=== PATIENT | male | born 1975 ===

== ENCOUNTER 2020-12-21 06:05 | Outpatient (REF) | payer BC, SELFPAY ==
[2020-12-21 11:33] LABS: Hematocrit 48.3 % (42-52); Hemoglobin 15.2 g/dl (14.0-18.0); Mean Corpuscular HGB Conc 31.5 g/dl (31.0-36.0); Mean Corpuscular Hemoglobin 26.9 pg (27.0-33.0); Mean Corpuscular Volume 85.3 fL (80-98); Platelet Count 357 X10*3/uL (160-400); Red Blood Count 5.66 X10*6/uL (4.60-5.80); Red Cell Distribution Width 14.1 % (11.0-16.0)
[2020-12-21 11:35] LABS: Appearance Urine CLEAR; Color Urine YELLOW; Glucose Urine UA NEG (NEG); Leukocyte Esterase Urine NEG (NEG); Nitrite Urine NEG (NEG); Urine Blood TRACE (NEG); Urine Ketones NEG (NEG); Urine Protein NEG (NEG-TRACE)
[2020-12-21 12:05] LABS: Alanine Aminotransferase 40 U/L (0-40); Albumin Level 4.4 g/dL (3.5-5.0); Alkaline Phosphatase 63 U/L (39-117); Anion Gap 11 (12-20); Aspartate Amino Transferase 28 U/L (5-37); Bilirubin Total 0.8 mg/dL (0.0-1.0); Blood Urea Nitrogen 17 mg/dL (9-16); Calcium 9.5 mg/dL (8.4-10.2); Carbon Dioxide 28 mmol/L (22-29); Chloride 103 mmol/L (96-108); Cholesterol 181 mg/dL; Estimated Glomerular Filt Rate > 60; Glucose Fasting 98 mg/dL (60-99); HDL Cholesterol 31 mg/dL; LDL Cholesterol Calculated 123 mg/dl; Potassium 4.3 mmol/L (3.3-5.1); Sodium 138 mmol/L (135-145); Total Protein 7.5 g/dL (6.5-8.0); Triglycerides 138 mg/dL
[2020-12-21 12:44] LABS: RBC Urine 0-2 /HPF (0); WBC Urine 0-2 /HPF (0-4)
== END 2020-12-21 06:06 | disposition home or self-care (01) ==
LOC: HO.HMGCLDS 06:05
PROVIDERS: PCP Internal Medicine; Visit Provider Internal Medicine
DX: Z00.00 Encounter for general adult medical examination without abnormal findings (principal); E78.5 Hyperlipidemia, unspecified; R74.8 Abnormal levels of other serum enzymes
CPT/HCPCS: 36415; 80053; 80061; 81001; 82550; 85027

== ENCOUNTER 2021-12-13 06:06 | Outpatient (REF) | payer BC, SELFPAY ==
[2021-12-13 11:15] LABS: MANUAL DIFF FLAG NO
[2021-12-13 11:35] LABS: Basophils Percent Auto 0.4 % (0-2); Eosinophils Absolute Auto 0.3 X10*3/uL (0.0-0.4); Eosinophils Percent Auto 2.7 % (0-4); Hematocrit 48.6 % (42.0-52.0); Hemoglobin 15.3 g/dl (14.0-18.0); Imm Gran Abs Auto 0.03 X10*3/uL (0.00-0.03); Imm Gran Pct Auto 0.3 % (0.0-0.4); Lymphocytes Absolute Auto 2.5 X10*3/uL (1.2-4.9); Lymphocytes Percent Auto 26.9 % (20-40); Mean Corpuscular HGB Conc 31.5 g/dl (31.0-36.0); Mean Corpuscular Hemoglobin 27.1 pg (27.0-33.0); Mean Platelet Volume 10.7 fL (9.4-12.4); Monocytes Absolute Auto 0.8 X10*3/uL (0.1-1.2); Monocytes Percent Auto 9.1 % (2-11); Neutrophils Absolute Auto 5.6 x10*3/uL (2.0-8.3); Neutrophils Percent Auto 60.6 % (45-73); Platelet Count 350 X10*3/uL (160-400); Red Blood Count 5.65 X10*6/uL (4.60-5.80); Red Cell Distribution Width 14.6 % (11.0-16.0); White Blood Count 9.3 X10*3/uL (4.8-10.8)
[2021-12-13 11:41] LABS: Alanine Aminotransferase 46 U/L (0-40); Albumin Level 4.5 g/dL (3.5-5.0); Alkaline Phosphatase 62 U/L (39-117); Anion Gap 12 (12-20); Aspartate Amino Transferase 35 U/L (5-37); Bilirubin Total 0.7 mg/dL (0.0-1.0); Blood Urea Nitrogen 20 mg/dL (9-16); Calcium 9.2 mg/dL (8.4-10.2); Carbon Dioxide 29 mmol/L (22-29); Chloride 103 mmol/L (96-108); Cholesterol 213 mg/dL; Estimated Glomerular Filt Rate > 60; Glucose Fasting 93 mg/dL (60-99); HDL Cholesterol 30 mg/dL; LDL Cholesterol Calculated 147 mg/dl; Potassium 4.3 mmol/L (3.3-5.1); Sodium 140 mmol/L (135-145); Total Protein 7.6 g/dL (6.5-8.0); Triglycerides 183 mg/dL
[2021-12-19 05:01] LABS: Lipoprotein A 75 nmol/L (<75)
== END 2021-12-13 06:07 | disposition home or self-care (01) ==
LOC: HO.HMGCLDS 06:06
PROVIDERS: PCP Internal Medicine; Visit Provider Internal Medicine
DX: Z00.00 Encounter for general adult medical examination without abnormal findings (principal); E78.5 Hyperlipidemia, unspecified
CPT/HCPCS: 36415; 80053; 80061; 83695; 85025

== ENCOUNTER 2022-05-02 06:17 | Outpatient (REF) | payer BC, SELFPAY ==
[2022-05-02 12:00] LABS: Alanine Aminotransferase 74 U/L (0-40); Albumin Level 4.2 g/dL (3.5-5.0); Alkaline Phosphatase 64 U/L (39-117); Anion Gap 12 (12-20); Aspartate Amino Transferase 46 U/L (5-37); Bilirubin Total 0.4 mg/dL (0.0-1.0); Blood Urea Nitrogen 25 mg/dL (9-16); Calcium 9.4 mg/dL (8.4-10.2); Carbon Dioxide 27 mmol/L (22-29); Chloride 104 mmol/L (96-108); Cholesterol 260 mg/dL; Estimated Glomerular Filt Rate > 60; Glucose Fasting 102 mg/dL (60-99); HDL Cholesterol 30 mg/dL; Potassium 4.2 mmol/L (3.3-5.1); Sodium 139 mmol/L (135-145); Total Protein 7.3 g/dL (6.5-8.0); Triglycerides 452 mg/dL
== END 2022-05-02 06:18 | disposition home or self-care (01) ==
LOC: HO.HMGCLDS 06:17
PROVIDERS: PCP Internal Medicine; Visit Provider Internal Medicine
DX: E78.5 Hyperlipidemia, unspecified (principal)
CPT/HCPCS: 36415; 80053; 80061

== ENCOUNTER 2022-08-06 06:04 | Outpatient (REF) | payer BC, SELFPAY ==
[2022-08-06 11:50] LABS: Alanine Aminotransferase 27 U/L (0-40); Albumin Level 4.2 g/dL (3.5-5.0); Alkaline Phosphatase 63 U/L (39-117); Anion Gap 11 (12-20); Aspartate Amino Transferase 21 U/L (5-37); Bilirubin Total 1.1 mg/dL (0.0-1.0); Blood Urea Nitrogen 17 mg/dL (9-16); Calcium 9.6 mg/dL (8.4-10.2); Carbon Dioxide 30 mmol/L (22-29); Chloride 105 mmol/L (96-108); Cholesterol 199 mg/dL; Estimated Glomerular Filt Rate > 60; Glucose Fasting 99 mg/dL (60-99); HDL Cholesterol 34 mg/dL; LDL Cholesterol Calculated 132 mg/dl; Sodium 142 mmol/L (135-145); Total Protein 7.2 g/dL (6.5-8.0); Triglycerides 168 mg/dL
== END 2022-08-06 06:05 | disposition home or self-care (01) ==
LOC: HO.HMGCLDS 06:04
PROVIDERS: PCP Internal Medicine; Visit Provider Internal Medicine
DX: E78.5 Hyperlipidemia, unspecified (principal)
CPT/HCPCS: 36415; 80053; 80061

== ENCOUNTER 2022-11-28 06:05 | Outpatient (REF) | payer BC, SELFPAY ==
[2022-11-28 11:21] LABS: MANUAL DIFF FLAG NO
[2022-11-28 11:29] LABS: Appearance Urine Clear; Color Urine Yellow; Glucose Urine UA Negative (Negative); Leukocyte Esterase Urine Negative (Negative); Nitrite Urine Negative (Negative); Urine Blood Negative (Negative); Urine Ketones Negative (Negative); Urine Protein Negative (Neg-Trace)
[2022-11-28 11:33] LABS: Bacteria Urine None Seen (None Seen); Hyaline Casts Urine 0-2 /LPF (0-2); RBC Urine 0-2 /HPF (0-2); Squamous Epithelial Cell Urine 0-2 /HPF (0-2); WBC Urine 0-5 /HPF (0-5)
[2022-11-28 11:34] LABS: Basophils Absolute Auto 0.1 X10*3/uL (0.0-0.2); Basophils Percent Auto 0.6 % (0-2); Eosinophils Absolute Auto 0.3 X10*3/uL (0.0-0.4); Eosinophils Percent Auto 3.4 % (0-4); Hematocrit 48.4 % (42.0-52.0); Hemoglobin 15.5 g/dl (14.0-18.0); Imm Gran Abs Auto 0.04 X10*3/uL (0.00-0.03); Imm Gran Pct Auto 0.5 % (0.0-0.4); Lymphocytes Absolute Auto 2.5 X10*3/uL (1.2-4.9); Lymphocytes Percent Auto 29.4 % (20-40); Mean Corpuscular Hemoglobin 27.8 pg (27.0-33.0); Mean Corpuscular Volume 86.7 fL (80.0-98.0); Mean Platelet Volume 11.3 fL (9.4-12.4); Monocytes Absolute Auto 0.7 X10*3/uL (0.1-1.2); Monocytes Percent Auto 8.4 % (2-11); Neutrophils Absolute Auto 4.9 x10*3/uL (2.0-8.3); Neutrophils Percent Auto 57.7 % (45-73); Platelet Count 309 X10*3/uL (160-400); Red Blood Count 5.58 X10*6/uL (4.60-5.80); Red Cell Distribution Width 14.6 % (11.0-16.0); White Blood Count 8.5 X10*3/uL (4.8-10.8)
[2022-11-28 12:46] LABS: Alanine Aminotransferase 28 U/L (0-40); Albumin Level 4.3 g/dL (3.5-5.0); Alkaline Phosphatase 54 U/L (39-117); Anion Gap 12 (12-20); Aspartate Amino Transferase 23 U/L (5-37); Bilirubin Total 1.1 mg/dL (0.0-1.0); Blood Urea Nitrogen 18 mg/dL (9-16); Calcium 9.3 mg/dL (8.4-10.2); Carbon Dioxide 27 mmol/L (22-29); Chloride 105 mmol/L (96-108); Cholesterol 222 mg/dL (<200); Estimated Glomerular Filt Rate > 60; Glucose Fasting 93 mg/dL (60-99); HDL Cholesterol 40 mg/dL (>40); LDL Cholesterol Calculated 154 mg/dL (<100); Potassium 3.8 mmol/L (3.3-5.1); Sodium 140 mmol/L (135-145); Total Protein 7.6 g/dL (6.5-8.0); Triglycerides 144 mg/dL (<150)
== END 2022-11-28 06:06 | disposition home or self-care (01) ==
LOC: HO.HMGCLDS 06:05
PROVIDERS: PCP Internal Medicine; Visit Provider Internal Medicine
DX: Z00.00 Encounter for general adult medical examination without abnormal findings (principal); E78.5 Hyperlipidemia, unspecified
CPT/HCPCS: 36415; 80053; 80061; 81001; 85025

== ENCOUNTER 2022-12-03 12:46 | Outpatient (AMB) | payer BC, SELFPAY ==
[2022-12-03 12:56] VITALS: BP 94/60; PULSE 67; O2SAT 99; BMI 29.4
--- NOTE | 2022-12-03 12:56 | MHC.PC.OV ---
Vital Signs 12/03/22 12:56 Height 5 ft 11 in Weight 211 lb BMI 29.4 BP 94/60 Blood Pressure Location Lt brachial Position Sitting Pulse 67 Pulse Source Pulse Oximeter Pulse Oximetry (%) 99 Oxygen Delivery Method Room Air Intake Visit Reasons: annual PE Intake Note: Pt is here today for PE. Allergies pregabalin Allergy (Unknown, Verified 12/03/22 13:28) off balance, anxious seasonal Allergy (Unknown, Uncoded 12/03/22 13:28) unknown Medication List - Last Reconciled 12/03/22 by Virginia Gr MD gabapentin 300 mg PO TID PRN Tobacco use date assessed: 12/03/22 Dental Screening Dental Screen Date: 12/03/22 Did you have a dental visit in the last 12 months?: Yes Did you have a dental problem in the last 6 months where you did not have access to dental care?: No Was dental information given to patient?: Patient has dentist HPI annual PE HPI Details Pt presents for PE. PFSH Medical History Hyperlipemia Annual physical exam Lower back pain Sciatica Elevated CPK Family History Father CAD (coronary artery disease) Hx of CABG Mother Kidney stones Maternal Grandmother Unknown family medical history Maternal Grandfather No problems noted. Paternal Grandmother HTN (hypertension) Paternal Grandfather Myocardial infarction Social History Household Members Other:: physically active at work, , 13,14 children Housing: House Patient Tobacco Use Status: Never used Tobacco e-Cigarette/Vaping Use: Never Used Current occupational status: employed Cognitive needs: No Hearing needs: No Vision needs: No Questionnaire Thrive Questionnaire Date Thrive assessed: 08/08/22 AUDIT C Alcohol Use Questionnaire (AUDIT-C) 1. How often do you have a drink containing alcohol?: Monthly or less 2. How many drinks containing alcohol do you have on a typical day when you are drinking?: 1 or 2 3. How often do you have six or more drinks on one occasion?: Never Total Score: 1 MARCELO-7 AMB Questionnaire MARCELO-7 Date MARCELO - 7 assessed: 08/08/22 Source: Developed by Drs. Canelo Hayes, Rekha Padgett, Carmelo Vidal and colleagues, with an educational precious from [employer]. Review of Systems Const All systems reviewed & are unremarkable except as noted in HPI and below Reports no additional complaints Eyes Reports no additional complaints ENT Reports no additional complaints Card Reports no additional complaints Resp Reports no additional complaints GI Reports no additional complaints Reports no additional complaints Physical exam (Primary Care) Vital Signs: Last Vital Signs Pulse 67 12/03/22 12:56 BP 94/60 12/03/22 12:56 Pulse Ox 99 12/03/22 12:56 Oxygen Delivery Method Room Air 12/03/22 12:56 BMI result Body Mass Index 29.4 Tobacco/Smoking Status: Tobacco use Status Tobacco use date assessed 12/03/22 12/03/22 13:31 Patient Tobacco Use Status Never used Tobacco 12/03/22 13:31 e-Cigarette/Vaping Use Never Used 12/03/22 12:56 Thrive Assessment: Date of Thrive Assessment Date Thrive assessed 08/08/22 12/03/22 12:56 Const General: no acute distress HENMT Head: Yes normal to inspection Ears: hearing grossly normal bilaterally Mouth: Normal oral and palatal mucosa present Throat: Yes posterior oropharynx normal Eyes General: appearance normal, both eyes and all related structures Neck Neck: Yes no lymphadenopathy and Yes supple Resp Effort & Inspection: normal respiratory effort Auscultation: clear to auscultation bilaterally Cardio Rhythm: regular rhythm Heart sounds: S1 normal heart sound present and S2 normal heart sound present GI Inspection: Yes normal to inspection Palpation (GI): Soft to palpation Percussion: Yes normal to percussion Auscultation: normal bowel sounds Assessment and Plan Assessment & Plan (1) Annual physical exam: Code(s): Z00.00 - Encounter for general adult medical examination without abnormal findings Plan: Well-balanced diet regular physical activity weight loss discussed with the patient. (2) Hyperlipemia: Code(s): E78.5 - Hyperlipidemia, unspecified Plan: Continue low-cholesterol diet ,start fish oil supplement and follow-up in 6 months with fasting labs before Orders: Orders Lipid Panel 6 Months E78.5 - Hyperlipidemia, unspecified Coding Level of Care Code Est Pt Prev Care 40-64y(10994) Diagnoses Annual physical exam Z00.00 Hyperlipemia E78.5
== END 2022-12-03 14:30 | disposition home or self-care (01) ==
PROVIDERS: Visit Provider Internal Medicine
DX: Z00.00 Encounter for general adult medical examination without abnormal findings (principal); E78.5 Hyperlipidemia, unspecified
CPT/HCPCS: 99396

== ENCOUNTER 2023-06-03 08:46 | Outpatient (REF) | payer BC, SELFPAY ==
[2023-06-03 10:58] LABS: Cholesterol 201 mg/dL (<200); HDL Cholesterol 38 mg/dL (>40); LDL Cholesterol Calculated 130 mg/dL (<100); Triglycerides 165 mg/dL (<150)
== END 2023-06-03 08:47 | disposition home or self-care (01) ==
LOC: HO.HMGCLDS 08:46
PROVIDERS: PCP Internal Medicine; Visit Provider Internal Medicine
DX: E78.5 Hyperlipidemia, unspecified (principal)
CPT/HCPCS: 36415; 80061

== ENCOUNTER 2023-06-10 14:07 | Outpatient (AMB) | payer BC, SELFPAY ==
--- NOTE | 2023-06-10 14:29 | MHC.PC.OV ---
Vital Signs 06/10/23 14:30 Height 5 ft 11 in Weight 215 lb BMI 30.0 BP 104/64 Blood Pressure Location Lt brachial Position Sitting Pulse 65 Pulse Source Pulse Oximeter Pulse Oximetry (%) 96 Oxygen Delivery Method Room Air Intake Visit Reasons: 6 month follow up Intake Note: Pt is here today for 6 months follow up visit on labs. Allergies pregabalin Allergy (Unknown, Verified 06/10/23 14:32) off balance, anxious seasonal Allergy (Unknown, Uncoded 06/10/23 14:32) unknown Medication List - Last Reconciled 06/10/23 by Virginia Gr MD gabapentin 300 mg PO TID Tobacco use date assessed: 06/10/23 Dental Screening Dental Screen Date: 06/10/23 Did you have a dental visit in the last 12 months?: Yes Did you have a dental problem in the last 6 months where you did not have access to dental care?: No Was dental information given to patient?: Patient has dentist HPI 6 month follow up HPI Details Pt presents for f/u hyperlipid. PFSH Medical History Hyperlipemia Annual physical exam Lower back pain Sciatica Elevated CPK Surgical History No pertinent past surgical history Family History Father CAD (coronary artery disease) Hx of CABG Mother Kidney stones Maternal Grandmother Unknown family medical history Maternal Grandfather No problems noted. Paternal Grandmother HTN (hypertension) Paternal Grandfather Myocardial infarction Social History Household Members Other:: physically active at work, , 13,14 children Housing: House Patient Tobacco Use Status: Never used Tobacco e-Cigarette/Vaping Use: Never Used service: No Current occupational status: employed Cognitive needs: No Hearing needs: No Vision needs: No Questionnaire PHQ-9 Over the last 2 weeks, how often have you been bothered by any of the following problems? 1. Little interest or pleasure in doing things: not at all 2. Feeling down, depressed, or hopeless: not at all 3. Trouble falling or staying asleep, or sleeping too much: not at all 4. Feeling tired or having little energy: not at all 5. Poor appetite or overeating: not at all 6. Feeling bad about yourself - or that you are a failure or have let yourself or your family down: not at all 7. Trouble concentrating on things, such as reading the newspaper or watching television: not at all 8. Moving or speaking so slowly that other people could have noticed. Or the opposite - being so fidgety or restless that you have been moving around a lot more than usual: not at all 9. Thoughts that you would be better off or of hurting yourself in some way: not at all Total score: 0 Depression Screening Interpretation: Negative Depression Screening Done: Yes Source: Developed by Drs. Canelo Hayes, Rekha Padgett, Carmelo Vidal and colleagues, with an educational precious from [employer]. Thrive Questionnaire Date Thrive assessed: 06/10/23 I am a: Patient What is your living situation today?: I have a steady place to live Within the past 12 months, did the food you bought not last and you didn't have the money to get more?: Never true Within the past 12 months, did you worry whether your food would run out before you got money to buy more?: Never true Do you have trouble paying for medicines?: No Do you have trouble getting transportation to medical appointments?: No Do you have trouble paying your heating and electricity bill?: No Do you have trouble taking care of your child, family member or friend?: No Do you have trouble with day-to-day activities such as bathing, preparing meals, shopping, managing finances, etc.?: No Are you currently unemployed and looking for a job?: No Are you interested in more education?: No Please select the resources that you would like help with: None THRIVE Score: 0 MARCELO-7 AMB Questionnaire MARCELO-7 Date MARCELO - 7 assessed: 06/10/23 Feeling nervous, anxious, or on edge: 0 = Not at all Not being able to stop or control worryin = Not at all Worrying too much about different things: 0 = Not at all Trouble relaxin = Not at all Being so restless that it is hard to sit still: 0 = Not at all Becoming easily annoyed or irritable: 0 = Not at all Feeling afraid as if something awful might happen: 0 = Not at all Total MARCELO-7 score (0-4 normal; 5-9 mild; 10-14 moderate; 15-21 severe): 0 Source: Developed by Drs. Canelo Hayes, Rekha Padgett, Carmelo Vidal and colleagues, with an educational precious from [employer]. Review of Systems Const All systems reviewed & are unremarkable except as noted in HPI and below Reports no additional complaints Eyes Reports no additional complaints ENT Reports no additional complaints Card Reports no additional complaints Resp Reports no additional complaints GI Reports no additional complaints Reports no additional complaints Physical exam (Primary Care) Vital Signs: Last Vital Signs Pulse 65 06/10/23 14:30 BP 104/64 06/10/23 14:30 Pulse Ox 96 06/10/23 14:30 Oxygen Delivery Method Room Air 06/10/23 14:30 BMI result Body Mass Index 30.0 Tobacco/Smoking Status: Tobacco use Status Tobacco use date assessed 06/10/23 06/10/23 14:37 Patient Tobacco Use Status Never used Tobacco 06/10/23 14:37 e-Cigarette/Vaping Use Never Used 06/10/23 14:37 PHQ-9: PHQ-9 Score PHQ-9: Total score 0 06/10/23 14:37 Depression Screening Interpretation: Negative Thrive Assessment: Date of Thrive Assessment Date Thrive assessed 06/10/23 06/10/23 14:37 Const General: no acute distress HENMT Head: Yes normal to inspection Ears: hearing grossly normal bilaterally Face and sinus: Yes normal facial exam Neck Neck: Yes supple Resp Effort & Inspection: normal respiratory effort Auscultation: clear to auscultation bilaterally Cardio Rhythm: regular rhythm Heart sounds: S1 normal heart sound present and S2 normal heart sound present Assessment and Plan Assessment & Plan (1) Hyperlipemia: Code(s): E78.5 - Hyperlipidemia, unspecified Plan: CONTINUE LOW-CHOLESTEROL DIET REGULAR EXERCISE AND WEIGHT LOST RETURN IN 6 MONTHS FOR PHYSICAL WITH A FASTING LABS BEFORE (2) Overweight: Code(s): E66.3 - Overweight Orders: Orders Comprehensive [place]. Panel Fast 6 Months E78.5 - Hyperlipidemia, unspecified, Z00.00 - Encounter for general adult medical examination without abnormal findings Lipid Panel 6 Months E78.5 - Hyperlipidemia, unspecified, Z00.00 - Encounter for general adult medical examination without abnormal findings LDL Cholesterol Direct 6 Months E78.5 - Hyperlipidemia, unspecified, Z00.00 - Encounter for general adult medical examination without abnormal findings Complete Blood Count Auto Diff 6 Months E78.5 - Hyperlipidemia, unspecified, Z00.00 - Encounter for general adult medical examination without abnormal findings Medications: Changed From gabapentin 300 mg PO TID PRN To gabapentin 300 mg PO TID 60 caps 0RF Coding Level of Care Code Est Pt Level 3 (30682) Diagnoses Hyperlipemia E78.5 Overweight E66.3
[2023-06-10 14:30] VITALS: BP 104/64; PULSE 65; O2SAT 96
== END 2023-06-10 15:06 | disposition home or self-care (01) ==
PROVIDERS: PCP Internal Medicine; Visit Provider Internal Medicine
DX: E78.5 Hyperlipidemia, unspecified (principal); E66.3 Overweight
CPT/HCPCS: 99213

== ENCOUNTER 2023-12-09 06:02 | Outpatient (REF) | payer BC, SELFPAY ==
[2023-12-09 10:05] LABS: MANUAL DIFF FLAG NO
[2023-12-09 10:11] LABS: Basophils Percent Auto 0.5 % (0-2); Eosinophils Absolute Auto 0.3 X10*3/uL (0.0-0.4); Eosinophils Percent Auto 3.5 % (0-4); Hematocrit 48.4 % (42.0-52.0); Hemoglobin 15.5 g/dl (14.0-18.0); Imm Gran Abs Auto 0.04 X10*3/uL (0.00-0.03); Imm Gran Pct Auto 0.5 % (0.0-0.4); Lymphocytes Absolute Auto 2.4 X10*3/uL (1.2-4.9); Lymphocytes Percent Auto 27.5 % (20-40); Mean Corpuscular Hemoglobin 27.5 pg (27.0-33.0); Mean Platelet Volume 10.6 fL (9.4-12.4); Monocytes Absolute Auto 0.8 X10*3/uL (0.1-1.2); Neutrophils Absolute Auto 5.2 x10*3/uL (2.0-8.3); Platelet Count 317 X10*3/uL (160-400); Red Blood Count 5.63 X10*6/uL (4.60-5.80); Red Cell Distribution Width 14.3 % (11.0-16.0); White Blood Count 8.8 X10*3/uL (4.8-10.8)
[2023-12-09 10:26] LABS: Alanine Aminotransferase 34 U/L (0-40); Albumin Level 4.3 g/dL (3.5-5.0); Alkaline Phosphatase 58 U/L (39-117); Anion Gap 11 (12-20); Aspartate Amino Transferase 26 U/L (5-37); Bilirubin Total 0.8 mg/dL (0.0-1.0); Blood Urea Nitrogen 17 mg/dL (9-16); Calcium 9.3 mg/dL (8.4-10.2); Carbon Dioxide 27 mmol/L (22-29); Chloride 105 mmol/L (96-108); Cholesterol 215 mg/dL (<200); Estimated Glomerular Filt Rate > 60; Glucose Fasting 105 mg/dL (60-99); HDL Cholesterol 37 mg/dL (>40); LDL Cholesterol Calculated 145 mg/dL (<100); Potassium 3.7 mmol/L (3.3-5.1); Sodium 139 mmol/L (135-145); Total Protein 7.7 g/dL (6.5-8.0); Triglycerides 169 mg/dL (<150)
[2023-12-10 19:14] LABS: LDL Cholesterol Direct 146 mg/dL (<100)
== END 2023-12-09 06:03 | disposition home or self-care (01) ==
LOC: HO.HMGCLDS 06:02
PROVIDERS: PCP Internal Medicine; Visit Provider Internal Medicine
DX: Z00.00 Encounter for general adult medical examination without abnormal findings (principal); E78.5 Hyperlipidemia, unspecified
CPT/HCPCS: 36415; 80053; 80061; 83721; 85025

== ENCOUNTER 2023-12-10 12:42 | Outpatient (AMB) | payer BC, SELFPAY ==
[2023-12-10 12:48] VITALS: BP 100/66; PULSE 60; O2SAT 97; BMI 29.8
--- NOTE | 2023-12-10 12:48 | MHC.PC.OV ---
Vital Signs 12/10/23 12:48 Height 5 ft 11 in Weight 214 lb BMI 29.8 BP 100/66 Blood Pressure Location Lt brachial Position Sitting Pulse 60 Pulse Source Pulse Oximeter Pulse Oximetry (%) 97 Oxygen Delivery Method Room Air Intake Visit Reasons: Annual PE Allergies pregabalin Allergy (Unknown, Verified 12/10/23 12:53) off balance, anxious seasonal Allergy (Unknown, Uncoded 12/10/23 12:53) unknown Medication List - Last Reconciled 12/10/23 by Virginia Gr MD gabapentin 300 mg PO DAILY PRN Tobacco use date assessed: 12/10/23 Dental Screening Dental Screen Date: 12/10/23 Did you have a dental visit in the last 12 months?: Yes Did you have a dental problem in the last 6 months where you did not have access to dental care?: No Was dental information given to patient?: Patient has dentist HPI Annual PE HPI Details Pt presents for PE. PFSH Medical History Hyperlipemia Annual physical exam Lower back pain Sciatica Elevated CPK Surgical History No pertinent past surgical history Family History Father CAD (coronary artery disease) Hx of CABG Mother Kidney stones Maternal Grandmother Unknown family medical history Maternal Grandfather No problems noted. Paternal Grandmother HTN (hypertension) Paternal Grandfather Myocardial infarction Social History Household Members Other:: physically active at work, , 13,14 children Housing: House Patient Tobacco Use Status: Never used Tobacco e-Cigarette/Vaping Use: Never Used service: No Current occupational status: employed Cognitive needs: No Hearing needs: No Vision needs: No Questionnaire PHQ-9 Over the last 2 weeks, how often have you been bothered by any of the following problems? 1. Little interest or pleasure in doing things: not at all 2. Feeling down, depressed, or hopeless: not at all 3. Trouble falling or staying asleep, or sleeping too much: not at all 4. Feeling tired or having little energy: not at all 5. Poor appetite or overeating: not at all 6. Feeling bad about yourself - or that you are a failure or have let yourself or your family down: not at all 7. Trouble concentrating on things, such as reading the newspaper or watching television: not at all 8. Moving or speaking so slowly that other people could have noticed. Or the opposite - being so fidgety or restless that you have been moving around a lot more than usual: not at all 9. Thoughts that you would be better off or of hurting yourself in some way: not at all Total score: 0 Depression Screening Interpretation: Negative Depression Screening Done: Yes 42011 - PHQ-9 Billing: Yes Source: Developed by Drs. Canelo Hayes, Rekha Padgett, Carmelo Vidal and colleagues, with an educational precious from [employer]. Thrive Questionnaire Date Thrive assessed: 06/10/23 I am a: Patient What is your living situation today?: I have a steady place to live Within the past 12 months, did the food you bought not last and you didn't have the money to get more?: I choose not to answer this question Within the past 12 months, did you worry whether your food would run out before you got money to buy more?: I choose not to answer this question Do you have trouble paying for medicines?: No Do you have trouble getting transportation to medical appointments?: No Do you have trouble paying your heating and electricity bill?: I choose not to answer this question Do you have trouble taking care of your child, family member or friend?: I choose not to answer this question Do you have trouble with day-to-day activities such as bathing, preparing meals, shopping, managing finances, etc.?: I choose not to answer this question Are you interested in more education?: I choose not to answer this question Please select the resources that you would like help with: None Currently or been in a relationship where the following occur: I choose not to answer THRIVE Score: 0 AUDIT C Alcohol Use Questionnaire (AUDIT-C) 1. How often do you have a drink containing alcohol?: Never 3. How often do you have six or more drinks on one occasion?: Never Total Score: 0 MARCELO-7 AMB Questionnaire MARCELO-7 Date MARCELO - 7 assessed: 06/10/23 Feeling nervous, anxious, or on edge: 0 = Not at all Not being able to stop or control worryin = Not at all Worrying too much about different things: 0 = Not at all Trouble relaxin = Not at all Being so restless that it is hard to sit still: 0 = Not at all Becoming easily annoyed or irritable: 0 = Not at all Feeling afraid as if something awful might happen: 0 = Not at all Total MARCELO-7 score (0-4 normal; 5-9 mild; 10-14 moderate; 15-21 severe): 0 Source: Developed by Drs. Canelo Hayes, Rekha Padgett, Carmelo Vidal and colleagues, with an educational precious from [employer]. Review of Systems Const All systems reviewed & are unremarkable except as noted in HPI and below Reports no additional complaints Eyes Reports no additional complaints ENT Reports no additional complaints Card Reports no additional complaints Resp Reports no additional complaints GI Reports no additional complaints Reports no additional complaints Musc Reports no additional complaints Physical exam (Primary Care) Vital Signs: Last Vital Signs Pulse 60 12/10/23 12:48 BP 100/66 12/10/23 12:48 Pulse Ox 97 12/10/23 12:48 Oxygen Delivery Method Room Air 12/10/23 12:48 BMI result Body Mass Index 29.8 Tobacco/Smoking Status: Tobacco use Status Tobacco use date assessed 12/10/23 12/10/23 12:55 Patient Tobacco Use Status Never used Tobacco 12/10/23 12:50 e-Cigarette/Vaping Use Never Used 12/10/23 12:50 PHQ-9: PHQ-9 Score PHQ-9: Total score 0 12/10/23 12:55 Depression Screening Interpretation: Negative Thrive Assessment: Date of Thrive Assessment Date Thrive assessed 06/10/23 12/10/23 12:50 Currently or been in a relationship where the following occur: I choose not to answer Const General: no acute distress HENMT Head: Yes normal to inspection Ears: hearing grossly normal bilaterally Mouth: Normal oral and palatal mucosa present Throat: Yes posterior oropharynx normal Eyes General: appearance normal, both eyes and all related structures Resp Effort & Inspection: normal respiratory effort Auscultation: clear to auscultation bilaterally Cardio Rate: regular rate Rhythm: regular rhythm and abnormal rhythm GI Inspection: Yes normal to inspection Palpation (GI): Soft to palpation Percussion: Yes normal to percussion Auscultation: normal bowel sounds Coding Level of Care Code Est Pt Prev Care 40-64y(26007) Diagnoses Annual physical exam Z00.00 Hyperlipemia E78.5 Overweight E66.3 Assessment & Plan Assessment & Plan (1) Annual physical exam: Comment: negative Cologuard 02/2023 Code(s): Z00.00 - Encounter for general adult medical examination without abnormal findings Category: Medical Plan: Well-balanced diet regular physical activity discussed with the patient. Patient requested referral to lithographic camera operator for weight loss and low-cholesterol diet (2) Hyperlipemia: Code(s): E78.5 - Hyperlipidemia, unspecified Category: Medical Plan: Low-cholesterol diet discussed with the patient (3) Overweight: Code(s): E66.3 - Overweight Category: Medical Plan: Referred to lithographic camera operator Orders: Orders Complete Blood Count Auto Diff 1 Year E66.3 - Overweight, E78.5 - Hyperlipidemia, unspecified, Z00.00 - Encounter for general adult medical examination without abnormal findings UA w Microscopic 1 Year E66.3 - Overweight, E78.5 - Hyperlipidemia, unspecified, Z00.00 - Encounter for general adult medical examination without abnormal findings Comprehensive [place]. Panel Fast 1 Year E66.3 - Overweight, E78.5 - Hyperlipidemia, unspecified, Z00.00 - Encounter for general adult medical examination without abnormal findings Lipid Panel 1 Year E66.3 - Overweight, E78.5 - Hyperlipidemia, unspecified, Z00.00 - Encounter for general adult medical examination without abnormal findings Referrals Nutrition/Dietitian Referral E66.3 - Overweight, E78.5 - Hyperlipidemia, unspecified Medications: Changed From gabapentin 300 mg PO TID 60 caps 0RF To gabapentin 300 mg PO DAILY PRN
== END 2023-12-10 13:35 | disposition home or self-care (01) ==
PROVIDERS: PCP Internal Medicine; Visit Provider Internal Medicine
DX: Z00.00 Encounter for general adult medical examination without abnormal findings (principal); E78.5 Hyperlipidemia, unspecified; E66.3 Overweight

== ENCOUNTER → 2023-12-10 12:42 | Outpatient (BNVA) | payer BC, SELFPAY | PROVIDERS: PCP Internal Medicine; Visit Provider Internal Medicine ==

== ENCOUNTER 2023-12-31 13:21 | Outpatient (AMB) | payer BC, SELFPAY ==
[2023-12-31 13:31] VITALS: BMI 29.9
--- NOTE | 2023-12-31 13:31 | A.OFFVIS_ITS ---
VS Expanded 12/31/23 13:31 Height 5 ft 11 in Weight 214 lb 8.156 oz BMI 29.9 Intake Visit Reasons: Hyperlipidemia, Overweight/CONFIRMED Allergies pregabalin Allergy (Unknown, Verified 12/10/23 12:53) off balance, anxious seasonal Allergy (Unknown, Uncoded 12/10/23 12:53) unknown Nutrition Presentation Details: Pt presents for MNT for high cholesterol . Pt was referred by PCP, Dr. Gr Pt reports working on following Mediterranean diet, reports confusion with meal options typical meal : B: Life cereals or sugary cereals with oat milk L: salads with chicken or sandwich with whole wheat bread , water , juices green D: pasta with beef cottage cheese , water snacks: fruits, cookies physical activity: active at work etoh/smoking -- food frequency fruits: 0-1/d ve-3 x/wk fish: 0-1/wk starches: 30 /d dairy: 2+/day fried foods: 1x/wk pastries: working on reducing BS Monitoring Most Recent Diabetes Results: Cholesterol 215 mg/dL (<200) H 12/09/23 HDL Cholesterol 37 mg/dL (>40) L 12/09/23 Triglycerides 169 mg/dL (<150) H 12/09/23 Creatinine 1.07 mg/dL (0.5-1.4) 12/09/23 Blood Urea Nitrogen 17 mg/dL (9-16) H 12/09/23 Sodium 139 mmol/L (135-145) 12/09/23 Potassium 3.7 mmol/L (3.3-5.1) 12/09/23 Chloride 105 mmol/L (96-108) 12/09/23 Carbon Dioxide 27 mmol/L (22-29) 12/09/23 Calcium 9.3 mg/dL (8.4-10.2) 12/09/23 AST 26 U/L (5-37) 12/09/23 ALT 34 U/L (0-40) 12/09/23 Total Protein 7.7 g/dL (6.5-8.0) 12/09/23 Albumin 4.3 g/dL (3.5-5.0) 12/09/23 OBH-[id number]-Id.Jeor Equation Height: 5 ft 11 in Weight: 215 lb Resting Metabolic Rate: 1875.13 Calculated Activity Level: Moderate Activity Calories Needed to Maintain Weight: 2906.45 Diagnosis Nutrition problem #1: food nutri know defi As related to (etiology) #1: diagnosis (elevated chol and fasting BG) As evidenced by (sign/symptom) #1: abnormal lab values and knowledge deficit of diet Monitoring/Goals Nutrition problem monitoring: level of knowledge/skill [facility] Medical History Hyperlipemia Annual physical exam Lower back pain Sciatica Elevated CPK Surgical History No pertinent past surgical history Family History Father CAD (coronary artery disease) Hx of CABG Mother Kidney stones Maternal Grandmother Unknown family medical history Maternal Grandfather No problems noted. Paternal Grandmother HTN (hypertension) Paternal Grandfather Myocardial infarction Social History Household Members Other:: physically active at work, , 13,14 children Housing: House Patient Tobacco Use Status: Never used Tobacco e-Cigarette/Vaping Use: Never Used service: No Current occupational status: employed Cognitive needs: No Hearing needs: No Vision needs: No Assessment & Plan Assessment & Plan (1) Hyperlipemia: Code(s): E78.5 - Hyperlipidemia, unspecified Category: Medical Plan: Wt: 98 Kg ( 12/30) Est kcal needs as per MSJ: 2900-500 (40% carb, 30% protein/fat) Est fluid needs as per 25-30 ml/d: 2900 Est prot per day as per 1 g/kg bw: 98 Recommend fiber intake : 8-10 g per day and gradually increase to 25-28 g per day for women and 35-38 g for men or as tolerated Recommend sodium intake per day : less than 1500 mg less than 2000 mg Educated patient on: ( R = reviewed V = verbalizes understanding N/R = needs review N/A = not applicable * Food sources of carbohydrate, adequate serving sizes and its role in various health conditions: R V N/R * Differences between complex carbohydrates a simple carbohydrates, role of fiber in diet: R * Lean protein sources of foods: R * Differences between types of fats and role in diet (mono on saturated fat fatty acids, saturated fatty acids, trans fats): R * Food sources of sodium in salt and healthy modifications for heart health in kidney health: R V R/V * Vitamins and minerals: R V N/R * Healthy plate method concept: R * Physical activity: Benefits a precaution: R V N/R * Hypoglycemia protocol (rule of 15): R V N/R * Dietary prevention of Hyperglycemia: R Patient Instructions: Choose foods low in saturated fats and increase fiber in your diet : Have fish twice a week , snack on nuts vs pastries, -see list of options Choose fruits at least twice a day in place of fruit juices Follow healthy plate method, see list of meal ideas Coding Level of Care Code Nutr Indiv Intake (87298) Diagnoses Hyperlipemia E78.5 Time Spent (min) 30
== END 2023-12-31 14:19 | disposition home or self-care (01) ==
PROVIDERS: PCP Internal Medicine; Visit Provider Dietitian, Registered
DX: E78.5 Hyperlipidemia, unspecified (principal)

== ENCOUNTER → 2023-12-31 13:21 | Outpatient (BNVA) | payer BC, SELFPAY | PROVIDERS: PCP Internal Medicine; Visit Provider Dietitian, Registered | DX: E78.5 Hyperlipidemia, unspecified (principal); Z71.3 Dietary counseling and surveillance | CPT/HCPCS: 97802 ==

== ENCOUNTER 2024-02-11 14:19 | Outpatient (AMB) | payer BC, SELFPAY ==
[2024-02-11 14:33] VITALS: BMI 30.3
--- NOTE | 2024-02-11 14:33 | A.OFFVIS_ITS ---
VS Expanded 02/11/24 14:33 Height 5 ft 11 in Weight 216 lb 14.958 oz BMI 30.3 Intake Visit Reasons: Hyperlipidemia, Overweight Allergies pregabalin Allergy (Unknown, Verified 12/10/23 12:53) off balance, anxious seasonal Allergy (Unknown, Uncoded 12/10/23 12:53) unknown Medication List - Last Reconciled 02/11/[address], LDN gabapentin 300 mg PO DAILY PRN omega 6-iyc-syo-fish oil 1,000 (120-180) mg (Fish Oil) 1 cap PO TID Nutrition Presentation Details: Pt presents for MNT f/u for hyperlipidemia Pt reports taking fish oil 1000 , 2-3 times/day Working on choosing fiber rich foods an dower fat food options BS Monitoring Most Recent Diabetes Results: Cholesterol 215 mg/dL (<200) H 12/09/23 HDL Cholesterol 37 mg/dL (>40) L 12/09/23 Triglycerides 169 mg/dL (<150) H 12/09/23 Creatinine 1.07 mg/dL (0.5-1.4) 12/09/23 Blood Urea Nitrogen 17 mg/dL (9-16) H 12/09/23 Sodium 139 mmol/L (135-145) 12/09/23 Potassium 3.7 mmol/L (3.3-5.1) 12/09/23 Chloride 105 mmol/L (96-108) 12/09/23 Carbon Dioxide 27 mmol/L (22-29) 12/09/23 Calcium 9.3 mg/dL (8.4-10.2) 12/09/23 AST 26 U/L (5-37) 12/09/23 ALT 34 U/L (0-40) 12/09/23 Total Protein 7.7 g/dL (6.5-8.0) 12/09/23 Albumin 4.3 g/dL (3.5-5.0) 12/09/23 [facility] Medical History Hyperlipemia Annual physical exam Lower back pain Sciatica Elevated CPK Surgical History No pertinent past surgical history Family History Father CAD (coronary artery disease) Hx of CABG Mother Kidney stones Maternal Grandmother Unknown family medical history Maternal Grandfather No problems noted. Paternal Grandmother HTN (hypertension) Paternal Grandfather Myocardial infarction Social History Household Members Other:: physically active at work, , 13,14 children Housing: House Patient Tobacco Use Status: Never used Tobacco e-Cigarette/Vaping Use: Never Used service: No Current occupational status: employed Cognitive needs: No Hearing needs: No Vision needs: No Assessment & Plan Assessment & Plan (1) Hyperlipemia: Code(s): E78.5 - Hyperlipidemia, unspecified Category: Medical Plan: Wt: 98 Kg ( 12/30), 03/01 Est kcal needs as per MSJ: 2900-500 (40% carb, 30% protein/fat) Est fluid needs as per 25-30 ml/d: 2900 Est prot per day as per 1 g/kg bw: 98 Recommend fiber intake : 8-10 g per day and gradually increase to 25-28 g per day for women and 35-38 g for men or as tolerated Recommend sodium intake per day : less than 1500 mg less than 2000 mg Educated patient on: ( R = reviewed V = verbalizes understanding N/R = needs review N/A = not applicable * Food sources of carbohydrate, adequate serving sizes and its role in various health conditions: R V N/R * Differences between complex carbohydrates a simple carbohydrates, role of fiber in diet: R * Lean protein sources of foods: R * Differences between types of fats and role in diet (mono on saturated fat fatty acids, saturated fatty acids, trans fats): R * Food sources of sodium in salt and healthy modifications for heart health in kidney health: R V R/V * Vitamins and minerals: R V N/R * Healthy plate method concept: R * Physical activity: Benefits a precaution: R * Dietary prevention of Hyperglycemia: R Patient Instructions: Continue working on reducing saturated fats and cholesterol in your diet by reading foods labels , vary plant and lean protein sources of foods Try meal replacement Choose foods with fiber and be mindful of amount of carbohydrates consumed at meals Coding Level of Care Code Nutr Indiv Subseq (84620) Diagnoses Hyperlipemia E78.5 Time Spent (min) 30
== END 2024-02-11 15:12 | disposition home or self-care (01) ==
PROVIDERS: PCP Internal Medicine; Visit Provider Dietitian, Registered
DX: E78.5 Hyperlipidemia, unspecified (principal)

== ENCOUNTER → 2024-02-11 14:19 | Outpatient (BNVA) | payer BC, SELFPAY | PROVIDERS: PCP Internal Medicine; Visit Provider Dietitian, Registered | DX: E78.5 Hyperlipidemia, unspecified (principal); E66.3 Overweight; Z71.3 Dietary counseling and surveillance; Z68.30 Body mass index [BMI] 30.0-30.9, adult | CPT/HCPCS: 97803 ==

== ENCOUNTER 2024-05-12 14:17 | Outpatient (AMB) | payer BC, SELFPAY ==
--- NOTE | 2024-05-12 14:38 | A.OFFVIS_ITS ---
VS Expanded 05/12/24 14:39 Height 5 ft 11 in Weight 210 lb 15.718 oz BMI 29.4 Intake Visit Reasons: high chol, elevated bg, monitor weight Allergies pregabalin Allergy (Unknown, Verified 12/10/23 12:53) off balance, anxious seasonal Allergy (Unknown, Uncoded 12/10/23 12:53) unknown Nutrition Presentation Details: Pt presents for MNT f/u for hyperlipidemia Pt reports working on including fiber rich foods, working on following Mediterranean diet concepts Reports increasing physical activity, BS Monitoring Most Recent Diabetes Results: Cholesterol 215 mg/dL (<200) H 12/09/23 HDL Cholesterol 37 mg/dL (>40) L 12/09/23 Triglycerides 169 mg/dL (<150) H 12/09/23 Creatinine 1.07 mg/dL (0.5-1.4) 12/09/23 Blood Urea Nitrogen 17 mg/dL (9-16) H 12/09/23 Sodium 139 mmol/L (135-145) 12/09/23 Potassium 3.7 mmol/L (3.3-5.1) 12/09/23 Chloride 105 mmol/L (96-108) 12/09/23 Carbon Dioxide 27 mmol/L (22-29) 12/09/23 Calcium 9.3 mg/dL (8.4-10.2) 12/09/23 AST 26 U/L (5-37) 12/09/23 ALT 34 U/L (0-40) 12/09/23 Total Protein 7.7 g/dL (6.5-8.0) 12/09/23 Albumin 4.3 g/dL (3.5-5.0) 12/09/23 [facility] Medical History Hyperlipemia Annual physical exam Lower back pain Sciatica Elevated CPK Surgical History No pertinent past surgical history Family History Father CAD (coronary artery disease) Hx of CABG Mother Kidney stones Maternal Grandmother Unknown family medical history Maternal Grandfather No problems noted. Paternal Grandmother HTN (hypertension) Paternal Grandfather Myocardial infarction Social History Household Members Other:: physically active at work, , 13,14 children Housing: House Patient Tobacco Use Status: Never used Tobacco e-Cigarette/Vaping Use: Never Used service: No Current occupational status: employed Cognitive needs: No Hearing needs: No Vision needs: No Assessment & Plan Assessment & Plan (1) Hyperlipemia: Code(s): E78.5 - Hyperlipidemia, unspecified Category: Medical Plan: Wt: 98 Kg ( 12/30), 03/01, 96 kg (05/31) Est kcal needs as per MSJ: 2900-500 (40% carb, 30% protein/fat) Est fluid needs as per 25-30 ml/d: 2900 Est prot per day as per 1 g/kg bw: 98 Recommend fiber intake : 8-10 g per day and gradually increase to 25-28 g per day for women and 35-38 g for men or as tolerated Recommend sodium intake per day : less than 1500 mg less than 2000 mg Educated patient on: ( R = reviewed V = verbalizes understanding N/R = needs review N/A = not applicable * Food sources of carbohydrate, adequate serving sizes and its role in various health conditions: R V N/R * Differences between complex carbohydrates a simple carbohydrates, role of fiber in diet: R * Lean protein sources of foods: R * Differences between types of fats and role in diet (mono on saturated fat fatty acids, saturated fatty acids, trans fats): R * Food sources of sodium in salt and healthy modifications for heart health in kidney health: R V R/V * Vitamins and minerals: R V N/R * Healthy plate method concept: R * Physical activity: Benefits a precaution: R * Dietary prevention of Hyperglycemia: R Patient Instructions: Include fiber rich foods/omega 3 fatty acids( seeds, nuts, as example) Continue working on reducing foods high in saturated fats (processed/pre fried foods Coding Level of Care Code Nutr Indiv Subseq (07391) Diagnoses Hyperlipemia E78.5 Time Spent (min) 20
[2024-05-12 14:39] VITALS: BMI 29.4
== END 2024-05-12 15:18 | disposition home or self-care (01) ==
PROVIDERS: PCP Internal Medicine; Visit Provider Dietitian, Registered
DX: E78.5 Hyperlipidemia, unspecified (principal)

== ENCOUNTER → 2024-05-12 14:17 | Outpatient (BNVA) | payer BC, SELFPAY | PROVIDERS: PCP Internal Medicine; Visit Provider Dietitian, Registered | DX: E78.5 Hyperlipidemia, unspecified (principal); Z71.3 Dietary counseling and surveillance | CPT/HCPCS: 97803 ==

== ENCOUNTER 2024-08-11 14:23 | Outpatient (AMB) | payer BC, SELFPAY ==
--- NOTE | 2024-08-11 14:44 | A.OFFVIS_ITS ---
VS Expanded 08/11/24 14:46 Height 5 ft 11 in Weight 212 lb 15.465 oz BMI 29.7 Intake Visit Reasons: hyperlipidemia Allergies pregabalin Allergy (Unknown, Verified 12/10/23 12:53) off balance, anxious seasonal Allergy (Unknown, Uncoded 12/10/23 12:53) unknown Nutrition Presentation Details: Pt presents for MNT f/u for hyperlipidemia Pt reports reading food labels, working on reducing sat'd fats challenges when eating out /appetite Working on increasing fiber rich foods : legumes/whole grains Keeping physically active at work and mindfully increasing activity BS Monitoring Most Recent Diabetes Results: Cholesterol, (<200) 215 mg/dL H 12/09/23 HDL Cholesterol, (>40) 37 mg/dL L 12/09/23 Triglycerides, (<150) 169 mg/dL H 12/09/23 Creatinine, (0.5-1.4) 1.07 mg/dL 12/09/23 BUN, (9-16) 17 mg/dL H 12/09/23 Sodium, (135-145) 139 mmol/L 12/09/23 Potassium, (3.3-5.1) 3.7 mmol/L 12/09/23 Chloride, (96-108) 105 mmol/L 12/09/23 Carbon Dioxide, (22-29) 27 mmol/L 12/09/23 Calcium, (8.4-10.2) 9.3 mg/dL 12/09/23 AST, (5-37) 26 U/L 12/09/23 ALT, (0-40) 34 U/L 12/09/23 Total Protein, (6.5-8.0) 7.7 g/dL 12/09/23 Albumin, (3.5-5.0) 4.3 g/dL 12/09/23 PFSH Medical History Hyperlipemia Annual physical exam Lower back pain Sciatica Elevated CPK Surgical History No pertinent past surgical history Family History Father CAD (coronary artery disease) Hx of CABG Mother Kidney stones Maternal Grandmother Unknown family medical history Maternal Grandfather No problems noted. Paternal Grandmother HTN (hypertension) Paternal Grandfather Myocardial infarction Social History Household Members Other:: physically active at work, , 13,14 children Housing: House Patient Tobacco Use Status: Never used Tobacco e-Cigarette/Vaping Use: Never Used service: No Current occupational status: employed Cognitive needs: No Hearing needs: No Vision needs: No Assessment & Plan Assessment & Plan (1) Hyperlipemia: Code(s): E78.5 - Hyperlipidemia, unspecified Category: Medical Plan: , Wt: 98 Kg ( 12/30), 03/01, 96 kg (05/31), 97kg( 08/31) Est kcal needs as per MSJ: 2900-500 (40% carb, 30% protein/fat) Est fluid needs as per 25-30 ml/d: 2900 Est prot per day as per 1 g/kg bw: 98 Recommend fiber intake : 8-10 g per day and gradually increase to 25-28 g per day for women and 35-38 g for men or as tolerated Recommend sodium intake per day : less than 1500 mg less than 2000 mg Educated patient on: ( R = reviewed V = verbalizes understanding N/R = needs review N/A = not applicable * Food sources of carbohydrate, adequate serving sizes and its role in various health conditions: R * Differences between complex carbohydrates a simple carbohydrates, role of fiber in diet: R,V * Lean protein sources of foods: R * Differences between types of fats and role in diet (mono on saturated fat fatty acids, saturated fatty acids, trans fats): R,V * Food sources of sodium in salt and healthy modifications for heart health in kidney health: R V R/V * Vitamins and minerals: R * Healthy plate method concept: R * Physical activity: Benefits a precaution: R * Dietary prevention of Hyperglycemia: R Patient Instructions: Continue reducing on saturated fats (highly processed meats/pastrami/bologna and similar, pre fried/breaded food items, amount of cheese Include mono unsaturated fats n your diet (avocado/olive oil/nuts/seeds in adequate portions continue engagedin physical activity Coding Level of Care Code Nutr Indiv Subseq (72209) Diagnoses Hyperlipemia E78.5 Time Spent (min) 30
[2024-08-11 14:46] VITALS: BMI 29.7
== END 2024-08-11 15:21 | disposition home or self-care (01) ==
LOC: HO.ENCR 14:23
PROVIDERS: PCP Internal Medicine; Visit Provider Dietitian, Registered
DX: E78.5 Hyperlipidemia, unspecified (principal)

== ENCOUNTER → 2024-08-11 14:23 | Outpatient (BNVA) | payer BC, SELFPAY | PROVIDERS: PCP Internal Medicine; Visit Provider Dietitian, Registered | DX: E78.5 Hyperlipidemia, unspecified (principal); Z71.3 Dietary counseling and surveillance | CPT/HCPCS: 97803 ==

== ENCOUNTER 2024-12-09 10:04 | Outpatient (REF) | payer BC, SELFPAY ==
--- OUTSIDE RECORDS SUMMARY | 2024-12-09 10:53 | XMS_ITS | Data Portability ---
Author Organization [place] [facility], Allergy Address [address] [place] [id number] Care Team Providers Care Skein Straightener Name Role Phone KUNAL SPEARS Primary Care Provider Assessment No assessment recorded. Plan of Treatment Reminders Order Date Submit Date Provider Last Modified By Organization Details Last Modified Time Details Appointments None recorded. Lab None recorded. Referral None recorded. Procedures None recorded. Surgeries None recorded. Imaging None recorded. Medication Orders fluticasone propionate 50 mcg/actuati on nasal spray,suspe nsion 2024 025 [id number], [address] [place], [address], 09:24:39 Patient TargetsNo targets recorded. Patient Instructions Encounter Date Encounter Id Patient Instructions Last Modified By Organization Details Last Modified Time 10/28/2024 [id number] Take Flonase starting 2 weeks before the flight and continue through the trip Take pseudoephedrine half an hour before takeoff Take oxymetazoline and half an hour before descent Consider [employer] For current symptoms, can take pseudoephedrine for a week and oxymetazoline for 3 days [email or web address] Not available 10/28/2024 09:13:46 Reason for Referral None Reported. Problems Name Problem SNOMED Code Status Onset Date Resolution Date Notes Provider Name and Address Organization Details Recorded Time Sense of smell impaired 40610482 Active 2024 ROSA WROLEY MD [address], [address] [place] [facility] 09:06:36 Allergic rhinitis caused by pollen 90635365 Active 2024 ROSA WORLEY MD [address] [address], [place], [address], [facility] 09:07:28 Dysfunction of right eustachian tube 0852711326207 101 Active 2024 ROSA WORLEY MD [address] [address], [place], [address], [facility] 09:14:29 Problem Notes None recorded. Procedures Surgical History Date Name Laterality Status Provider Name and Address Organization Details Recorded Time JMSNasal/Sinus Endoscopy completed ROSA WORLEY MD 100 [facility],[address] [address], [place], [address], [facility] 10/28/2024 09:14:09 Imaging Results None recorded. Procedure Notes None recorded. Medical Equipment None Reported. Allergies Allergen ID Allergen Name Allergen Category Reaction Reaction Severity Criticality Documentation Date Start Date Code Code System Note Provider Name and Address Organization Details Recorded Time 480331 Lyrica medicatio n Not available Not available Not available 10/28/2024 81166 1 RxNorm ROSA WORLEY MD [address] [address], [place], [address], [facility] 09:17:32 Medications Name Sig Start Date Stop Date Status Note LastModified by Organization Details LastModified Time fluticasone propionate 50 mcg/actuatio n nasal spray,suspen polina [place] 2 sprays every day by intranasal route for 30 days. 2024 active Not Available Not Available Not Avai lable gabapentin 100 mg tablet Take 1 tablet 3 times a day by oral route. active Not Available Not Available No t Available Vitals Date Recorded Body height Body mass index (BMI) Body weight Provider Name and Address Organization Details Last Updated DateTime 10/28/2024 177.8 cm 29.4 kg/m2 08350.44 g Eboni Raman [facility] 10/28/2024 08:58:52 Social History None recorded. Functional Status None recorded. Mental Status None recorded. Family History Nothing Reported. Medical History No medical history recorded. 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 He has not lost smell completely . There are no polyps on exam but there is some mucus consistent with recent upper URI symptoms and mildly deviated septum to the right. I recommende d using fluticason e. I recommende d smell retraining . Follow up for persistent or worsening symptoms. Allergic r hinitis caused by pollen 98970481 J30.1 69148593 Dysfunctio n of right eustachian tube 4584778903 193113 H69.91 08917508 He does have evidence of effusion after a flight. I recommende d using Sudafed and Afrin. We discussed preventati ve measures. Follow-up if no improvemen t in the upcoming weeks. Health Concerns Section Related Observation LastModified by Organization Detai ls LastModified Time None Recorded Concern Status LastModified by Organization Details LastModified Time None Recorded Advance Directives Directive None Recorded Payers Insurance Date Sequence Insurance Name Policy Number Policy Claudio Covered Member ID Claudio Member ID Guarantor Name 10/28/2024 1 SUNIL (PPO) [id number] Josh Crystal [id number] Josh Crystal Notes Date Note Type Note Provider Name and Address Organization Details Recorded Time 10/28/2024 text/html ROS as noted in the HPI 49 yo M presents for evaluation [place], 2 [place] ago Has happened before with a flight Occasional allergies Trouble with sense of smell, after covid gradual lossCan smell strong scents like perfumesCan't smell gasCan smell barbecue smoke Denies headaches or double vision. Wears readers.No sinus infections. Sense of taste is normal ROSA WORLEY MD [address] [place] [address], [place], [address], [place] [facility] 10/28/2024 09:25:59
--- OUTSIDE RECORDS SUMMARY | 2024-12-09 10:53 | XMS_ITS | Patient Health Record ---
Author Organization [facility] Address [address] [place] [address] Care Team Providers Care Automatic Furnace Operator Name Role Phone Atul Wright M.D. Primary Care Provider Francine Canelo Hernandez Unavailable [phone] Allergies Allergen (clinical drug ingredient) Drug/Non Drug Allergy documented on EMR Reaction Allergy Type Onset Date Status pregabalin Lyrica Unknown Drug Allergy Active seasonal (uncoded) Unknown Allergy A ctive Reason For Referral No Information Problems Problem Type SNOMED Code ICD Code Onset Dates Problem Status W/U Status Risk Notes Problem 808838130 Elevated liver enzymes (R74.8) Active confirmed Problem 445494822 Fatty liver (K76.0) Active confirmed Plan Of Treatment Pending Test Test Name Order Date LIVER PROFILE 04/26/2015 LIVER PROFILE 12/06/2015 HCV LIVER FIBROSIS, FIBRO TEST 6 Insurance Providers Payer Name Payer Address Payer Phone Subscriber Number Group Number Insured Name Patient Relationship to Insured Coverage Start Date Coverage End Date [facility] [address] [place], [place] [id number] HUA MIKE Self - patient is the insured Medical (General) History Medical History History ICD Code SEASONAL ALLERGIES Sciatica--on right side elevated LFTs with a negativ e workup in 2014, including viral serologies, iron studies, alpha-1 antitrypsin level, ceruloplasmin level, SLAVA, and liver ultrasound Denies NH,DM,CVA,Lung disease,renal dise ase Surgical History Surgery Date(Month/Year) Lower back disc(herniated disc) for scia hernandez--Dr. Song
[2024-12-09 13:19] LABS: Appearance Urine Clear; Glucose Urine UA Negative (Negative); PH 6.0 (5.0-9.0); Specific Gravity - Urine 1.020 (1.005-1.025)
[2024-12-09 13:24] LABS: MANUAL DIFF FLAG NO
[2024-12-09 13:59] LABS: Hematocrit 48.5 % (42.0-52.0); Hemoglobin 15.6 g/dl (14.0-18.0); Imm Gran Abs Auto 0.05 X10*3/uL (0.00-0.03); Imm Gran Pct Auto 0.6 % (0.0-0.4); Lymphocytes Absolute Auto 2.2 X10*3/uL (1.2-4.9); Mean Corpuscular HGB Conc 32.2 g/dl (31.0-36.0); Mean Corpuscular Hemoglobin 27.5 pg (27.0-33.0); Mean Corpuscular Volume 85.4 fL (80.0-98.0); NRBC Abs Auto 0.000 X10*3/uL (0.0-0.012); NRBC Pct Auto 0.0 /100WBC (0.0-0.2); Platelet Count 336 X10*3/uL (160-400); Red Blood Count 5.68 X10*6/uL (4.60-5.80); White Blood Count 8.0 X10*3/uL (4.8-10.8)
[2024-12-09 14:19] LABS: Alanine Aminotransferase 36 U/L (0-40); Albumin Level 4.7 g/dL (3.5-5.0); Alkaline Phosphatase 61 U/L (39-117); Anion Gap 9 (12-20); Aspartate Amino Transferase 33 U/L (5-37); Blood Urea Nitrogen 22 mg/dL (9-16); Calcium 9.6 mg/dL (8.4-10.2); Carbon Dioxide 28 mmol/L (22-29); Chloride 105 mmol/L (96-108); Cholesterol 206 mg/dL (<200); Estimated Glomerular Filt Rate > 60; HDL Cholesterol 37 mg/dL (>40); Potassium 4.2 mmol/L (3.3-5.1); Sodium 138 mmol/L (135-145); Total Protein 7.8 g/dL (6.5-8.0); Triglycerides 125 mg/dL (<150)
== END 2024-12-09 10:05 | disposition home or self-care (01) ==
LOC: HO.HMGCLDS 10:04
PROVIDERS: PCP Internal Medicine; Visit Provider Internal Medicine
DX: Z00.00 Encounter for general adult medical examination without abnormal findings (principal); E78.5 Hyperlipidemia, unspecified; E66.3 Overweight
CPT/HCPCS: 36415; 80053; 80061; 81001; 85025

== ENCOUNTER 2024-12-12 12:59 | Outpatient (AMB) | payer BC, SELFPAY ==
--- NOTE | 2024-12-12 13:00 | MHC.PC.OV ---
Vital Signs 12/12/24 13:01 Height 5 ft 11 in Weight 210 lb BMI 29.3 BP 106/68 Blood Pressure Location Lt brachial Position Sitting Respiration 18 Pulse 70 Pulse Source Pulse Oximeter Temp 98.5 F Temp Source Oral Pulse Oximetry (%) 97 Oxygen Delivery Method Room Air Intake Visit Reasons: Annual PE Intake Note: Pt is here today for PE. Allergies pregabalin Allergy (Unknown, Verified 12/12/24 13:03) off balance, anxious seasonal Allergy (Unknown, Uncoded 12/12/24 13:03) unknown Medication List - Last Reconciled 12/12/24 by Virginia Gr MD gabapentin 300 mg PO DAILY PRN omega 3-llz-eiy-fish oil 1,000 (120-180) mg (Fish Oil) 1 cap PO TID Tobacco use date assessed: 12/12/24 Dental Screening Dental Screen Date: 12/12/24 Did you have a dental visit in the last 12 months?: Yes Did you have a dental problem in the last 6 months where you did not have access to dental care?: No Was dental information given to patient?: Patient has dentist HPI Annual PE HPI Details Pt presents for PE. PFSH Medical History Hyperlipemia Annual physical exam Lower back pain Sciatica Elevated CPK Surgical History No pertinent past surgical history Family History Father CAD (coronary artery disease) Hx of CABG Mother Kidney stones Maternal Grandmother Unknown family medical history Maternal Grandfather No problems noted. Paternal Grandmother HTN (hypertension) Paternal Grandfather Myocardial infarction Social History Household Members Other:: physically active at work, , 13,14 children Housing: House Patient Tobacco Use Status: Never used Tobacco e-Cigarette/Vaping Use: Never Used service: No Current occupational status: employed Cognitive needs: No Hearing needs: No Vision needs: No Questionnaire PHQ-9 Over the last 2 weeks, how often have you been bothered by any of the following problems? 1. Little interest or pleasure in doing things: not at all 2. Feeling down, depressed, or hopeless: not at all 3. Trouble falling or staying asleep, or sleeping too much: not at all 4. Feeling tired or having little energy: not at all 5. Poor appetite or overeating: not at all 6. Feeling bad about yourself - or that you are a failure or have let yourself or your family down: not at all 7. Trouble concentrating on things, such as reading the newspaper or watching television: not at all 8. Moving or speaking so slowly that other people could have noticed. Or the opposite - being so fidgety or restless that you have been moving around a lot more than usual: not at all 9. Thoughts that you would be better off or of hurting yourself in some way: not at all Total score: 0 Depression Screening Interpretation: Negative Depression Screening Done: Yes 35451 - PHQ-9 Billing: Yes Source: Developed by Drs. Canelo Hayes, Rekha Padgett, Carmelo Vidal and colleagues, with an educational precious from youwho. Thrive Questionnaire Date Thrive assessed: 12/12/24 I am a: Patient What is your living situation today?: I have a steady place to live Within the past 12 months, did the food you bought not last and you didn't have the money to get more?: I choose not to answer this question Within the past 12 months, did you worry whether your food would run out before you got money to buy more?: I choose not to answer this question Do you have trouble paying for medicines?: No Do you have trouble getting transportation to medical appointments?: No Do you have trouble paying your heating and electricity bill?: I choose not to answer this question Do you have trouble taking care of your child, family member or friend?: I choose not to answer this question Do you have trouble with day-to-day activities such as bathing, preparing meals, shopping, managing finances, etc.?: I choose not to answer this question Are you interested in more education?: I choose not to answer this question Please select the resources that you would like help with: None Currently or been in a relationship where the following occur: I choose not to answer THRIVE Score: 0 AUDIT C Alcohol Use Questionnaire (AUDIT-C) 1. How often do you have a drink containing alcohol?: Never 3. How often do you have six or more drinks on one occasion?: Never Total Score: 0 MARCELO-7 AMB Questionnaire MARCELO-7 Date MARCELO - 7 assessed: 12/12/24 Feeling nervous, anxious, or on edge: 0 = Not at all Not being able to stop or control worryin = Not at all Worrying too much about different things: 0 = Not at all Trouble relaxin = Not at all Being so restless that it is hard to sit still: 0 = Not at all Becoming easily annoyed or irritable: 0 = Not at all Feeling afraid as if something awful might happen: 0 = Not at all Total MARCELO-7 score (0-4 normal; 5-9 mild; 10-14 moderate; 15-21 severe): 0 Source: Developed by Drs. Canelo Hayes, Rekha Padgett, Carmelo Vidal and colleagues, with an educational precious from [employer]who. MARCELO-7 Assessment Billing MARCELO-7 Assessment Tool: MARCELO-7 Assessment 92851 Review of Systems Const All systems reviewed & are unremarkable except as noted in HPI and below Eyes Reports no additional complaints ENT Reports no additional complaints Card Reports no additional complaints Resp Reports no additional complaints GI Reports no additional complaints Reports no additional complaints Physical exam (Primary Care) Vital Signs: Last Vital Signs Temp 98.5 F 12/12/24 13:01 Pulse 70 12/12/24 13:01 Resp 18 12/12/24 13:01 BP 106/68 12/12/24 13:01 Pulse Ox 97 12/12/24 13:01 Oxygen Delivery Method Room Air 12/12/24 13:01 BMI result Body Mass Index 29.3 Tobacco/Smoking Status: Tobacco use Status Tobacco use date assessed 12/12/24 12/12/24 13:06 Patient Tobacco Use Status Never used Tobacco 12/12/24 13:06 e-Cigarette/Vaping Use Never Used 12/12/24 13:01 PHQ-9: PHQ-9 Score PHQ-9: Total score 0 12/12/24 13:06 Depression Screening Interpretation: Negative Thrive Assessment: Date of Thrive Assessment Date Thrive assessed 12/12/24 12/12/24 13:01 Currently or been in a relationship where the following occur: I choose not to answer Const General: no acute distress HENMT Head: Yes normal to inspection Ears: TM's normal bilaterally Face and sinus: Yes normal facial exam Mouth: Normal oral and palatal mucosa present Throat: Yes posterior oropharynx normal Eyes General: appearance normal, both eyes and all related structures Neck Neck: Yes no lymphadenopathy and Yes supple Resp Effort & Inspection: normal respiratory effort Auscultation: clear to auscultation bilaterally Cardio Rhythm: regular rhythm Heart sounds: S1 normal heart sound present and S2 normal heart sound present GI Inspection: Yes normal to inspection Palpation (GI): Soft to palpation Percussion: Yes normal to percussion Auscultation: normal bowel sounds Coding Level of Care Code Est Pt Prev Care 40-64y(63080) Diagnoses Hyperlipemia E78.5 Annual physical exam Z00.00 Additional Codes MARCELO-7 Assessment Billing - MARCELO-7 Assessment Tool: MARCELO-7 Assessment 16214 ([id number]) PHQ-9 - 27478 - PHQ-9 Billing: Yes ([id number]) Assessment & Plan Assessment & Plan (1) Hyperlipemia: Code(s): E78.5 - Hyperlipidemia, unspecified Category: Medical Plan: low cholesterol diet discussed, pt has seen field services director (2) Annual physical exam: Comment: negative Cologuard 02/2023 Code(s): Z00.00 - Encounter for general adult medical examination without abnormal findings Category: Medical Plan: well balanced diet, regular exercise, weight loss discussed Orders: Orders Lipid Panel 1 Year E78.5 - Hyperlipidemia, unspecified, Z00.00 - Encounter for general adult medical examination without abnormal findings UA w Microscopic 1 Year E78.5 - Hyperlipidemia, unspecified, Z00.00 - Encounter for general adult medical examination without abnormal findings Comprehensive Terril. Panel Fast 1 Year E78.5 - Hyperlipidemia, unspecified, Z00.00 - Encounter for general adult medical examination without abnormal findings Complete Blood Count Auto Diff 1 Year E78.5 - Hyperlipidemia, unspecified, Z00.00 - Encounter for general adult medical examination without abnormal findings PSA,Total (Free>4and<10) 1 Year E78.5 - Hyperlipidemia, unspecified, Z00.00 - Encounter for general adult medical examination without abnormal findings
[2024-12-12 13:01] VITALS: BP 106/68; PULSE 70; RESP 18; TEMP 36.9; O2SAT 97; BMI 29.3
--- OUTSIDE RECORDS SUMMARY | 2024-12-12 15:21 | XMS_ITS | Patient Health Record ---
Author Organization [facility] Address [address] [place] [address] Care Team Providers Care Advanced Research Programs Director Name Role Phone Atul Wright M.D. Primary Care Provider Francine Canelo Hernandez Unavailable [phone] Allergies Allergen (clinical drug ingredient) Drug/Non Drug Allergy documented on EMR Reaction Allergy Type Onset Date Status pregabalin Lyrica Unknown Drug Allergy Active seasonal (uncoded) Unknown Allergy A ctive Reason For Referral No Information Problems Problem Type SNOMED Code ICD Code Onset Dates Problem Status W/U Status Risk Notes Problem 471370070 Elevated liver enzymes (R74.8) Active confirmed Problem [id number] Fatty liver (K76.0) Active confirmed Plan Of Treatment Pending Test Test Name Order Date LIVER PROFILE 04/26/2015 LIVER PROFILE 12/06/2015 HCV LIVER FIBROSIS, FIBRO TEST 6 Insurance Providers Payer Name Payer Address Payer Phone Subscriber Number Group Number Insured Name Patient Relationship to Insured Coverage Start Date Coverage End Date [facility] [address] [place], [place] [id number] [phone] [id number] HUA MIKE Self - patient is the insured Medical (General) History Medical History History ICD Code SEASONAL ALLERGIES Sciatica--on right side elevated LFTs with a negativ e workup in 2014, including viral serologies, iron studies, alpha-1 antitrypsin level, ceruloplasmin level, SLAVA, and liver ultrasound Denies IA,DM,CVA,Lung disease,renal dise ase Surgical History Surgery Date(Month/Year) Lower back disc(herniated disc) for scia hernandez--Dr. Song
== END 2024-12-12 13:28 | disposition home or self-care (01) ==
LOC: HO.HMCC 12:59
PROVIDERS: PCP Internal Medicine; Visit Provider Internal Medicine
DX: E78.5 Hyperlipidemia, unspecified (principal); Z00.00 Encounter for general adult medical examination without abnormal findings

== ENCOUNTER → 2024-12-12 12:59 | Outpatient (BNVA) | payer BC, SELFPAY | PROVIDERS: PCP Internal Medicine; Visit Provider Internal Medicine | DX: Z00.00 Encounter for general adult medical examination without abnormal findings (principal); E78.5 Hyperlipidemia, unspecified | CPT/HCPCS: 96127 ==

== ENCOUNTER → 2025-02-09 14:18 | Outpatient (BNVA) | payer BC, SELFPAY | PROVIDERS: PCP Internal Medicine; Visit Provider Dietitian, Registered | DX: E78.5 Hyperlipidemia, unspecified (principal); Z71.3 Dietary counseling and surveillance | CPT/HCPCS: 97803 ==

== ENCOUNTER → 2025-02-09 14:18 | Outpatient (AMB) | payer BC, SELFPAY ==
[2025-02-09 14:47] VITALS: BMI 30.3
--- NOTE | 2025-02-09 14:47 | A.OFFVIS_ITS ---
VS Expanded 02/09/25 14:47 Height 5 ft 11 in Weight 217 lb BMI 30.3 Intake Visit Reasons: hyperlipidemia Allergies pregabalin Allergy (Unknown, Verified 12/12/24 13:03) off balance, anxious seasonal Allergy (Unknown, Uncoded 12/12/24 13:03) unknown Nutrition Presentation Details: Patient presents for medical nutrition therapy follow-up for hyperlipidemia. Patient reports working on diet modifications, choosing low saturated fat foods and working on including fiber rich foods. Patient reports getting informed and having nutrition education material Keeps physically active greater than 1 hour per day BS Monitoring Most Recent Diabetes Results: Cholesterol, (<200) 206 mg/dL H 12/09/24 HDL Cholesterol, (>40) 37 mg/dL L 12/09/24 Triglycerides, (<150) 125 mg/dL 12/09/24 Creatinine, (0.5-1.4) 1.02 mg/dL 12/09/24 BUN, (9-16) 22 mg/dL H 12/09/24 Sodium, (135-145) 138 mmol/L 12/09/24 Potassium, (3.3-5.1) 4.2 mmol/L 12/09/24 Chloride, (96-108) 105 mmol/L 12/09/24 Carbon Dioxide, (22-29) 28 mmol/L 12/09/24 Calcium, (8.4-10.2) 9.6 mg/dL 12/09/24 AST, (5-37) 33 U/L 12/09/24 ALT, (0-40) 36 U/L 12/09/24 Total Protein, (6.5-8.0) 7.8 g/dL 12/09/24 Albumin, (3.5-5.0) 4.7 g/dL 12/09/24 [facility] Medical History Hyperlipemia Annual physical exam Lower back pain Sciatica Elevated CPK Surgical History No pertinent past surgical history Family History Father CAD (coronary artery disease) Hx of CABG Mother Kidney stones Maternal Grandmother Unknown family medical history Maternal Grandfather No problems noted. Paternal Grandmother HTN (hypertension) Paternal Grandfather Myocardial infarction Social History Household Members Other:: physically active at work, , 13,14 children Housing: House Patient Tobacco Use Status: Never used Tobacco e-Cigarette/Vaping Use: Never Used service: No Current occupational status: employed Cognitive needs: No Hearing needs: No Vision needs: No Assessment & Plan Assessment & Plan (1) Hyperlipemia: Code(s): E78.5 - Hyperlipidemia, unspecified Category: Medical Plan: , Wt: 98 Kg ( 12/30), 03/01, 96 kg (05/31), 97kg( 08/31) 98kg ) Est kcal needs as per MSJ: 2900-500 (40% carb, 30% p rotein/fat) Est fluid needs as per 25-30 ml/d: 2900 Est prot per day as per 1 g/kg bw: 98 Recommend fiber intake : 8-10 g per day and gradually increase to 25-28 g per day for women and 35-38 g for men or as tolerated Recommend sodium intake per day : less than 1500 mg less than 2000 mg Educated patient on: ( R = reviewed V = verbalizes understanding N/R = needs review N/A = not applicable * Food sources of carbohydrate, adequate serving sizes and its role in various health conditions: R * Differences between complex carbohydrates a simple carbohydrates, role of fiber in diet: R,V * Lean protein sources of foods: R * Differences between types of fats and role in diet (mono on saturated fat fatty acids, saturated fatty acids, trans fats): R,V * Food sources of sodium in salt and healthy modifications for heart health in kidney health: R V R/V * Vitamins and minerals: R * Healthy plate method concept: R * Physical activity: Benefits a precaution: R * Dietary prevention of Hyperglycemia: R Patient Instructions: Continue working on reducing highly processed foods Choose mono on saturated fatty acids sources of foods Continue working on including fiber rich foods Coding Level of Care Code Nutr Indiv Subseq (54022) Diagnoses Hyperlipemia E78.5 Time Spent (min) 30
== END ==
LOC: HO.ENCR 14:18
PROVIDERS: PCP Internal Medicine; Visit Provider Dietitian, Registered
DX: E78.5 Hyperlipidemia, unspecified (principal)